=== PATIENT | male | born 1945 | race Caucasian/White ===

== ENCOUNTER 2018-02-27 05:53 | Inpatient (IN) | payer MEDICARE, BC ==
[2018-02-23 11:25] LABS: ADD MAN DIFF? NO
[2018-02-23 11:38] LABS: ADD UMIC YES; UR ASCORBIC ACID NEGATIVE (NEGATIVE); UR BILIRUBIN (Dip) NEGATIVE (NEGATIVE); UR BLOOD (Dip) NEGATIVE (NEGATIVE); UR CLARITY CLEAR (CLEAR); UR COLOR YELLOW (YELLOW); UR GLUCOSE (Dip) NEGATIVE (NEGATIVE); UR KETONES (Dip) NEGATIVE (NEGATIVE); UR LEUKOCYTE ESTERASE (Dip) NEGATIVE Leu/ul (NEGATIVE); UR MUCUS FEW /HPF (NONE SEEN); UR NITRITE (Dip) NEGATIVE (NEGATIVE); UR RBC 0 /HPF (0-5); UR SPECIFIC GRAVITY (Dip) 1.018 (1.003-1.030); UR TOTAL PROTEIN (Dip) 2+ mg/dl (NEGATIVE); UR UROBILINOGEN (Dip) NEGATIVE (NEGATIVE); UR WBC 1 /HPF (0-5)
[2018-02-23 11:39] LABS: WHITE BLOOD COUNT 9.7 10^3/ul (4.8-10.8)
[2018-02-23 11:39] LABS: BASOPHIL # 0.1 10^3/ul (0.0-0.1); BASOPHILS % 1.1 % (0.0-2.0); EOSINOPHILS # 0.3 10^3/ul (0.0-0.5); EOSINOPHILS % 3.2 % (0.0-7.0); HEMATOCRIT 45.3 % (42.0-52.0); HEMOGLOBIN 14.7 g/dl (14.0-18.0); LYMPHOCYTES # 2.1 10^3/ul (0.8-2.9); LYMPHOCYTES % 21.5 % (15.0-51.0); MEAN CORPUSCULAR HEMOGLOBIN 27.1 pg (29.0-33.0); MEAN CORPUSCULAR HGB CONC 32.5 g/dl (32.0-37.0); MEAN CORPUSCULAR VOLUME 83.4 fl (82.0-101.0); MEAN PLATELET VOLUME 9.9 fl (7.4-10.4); MONOCYTES % 10.7 % (0.0-11.0); NEUTROPHIL # 6.1 10^3/ul (1.6-7.5); NEUTROPHILS % 63.2 % (39.0-77.0); PLATELET COUNT 459 10^3/UL (140-415); RED BLOOD COUNT 5.43 10^6/ul (4.70-6.10); RED CELL DISTRIBUTION WIDTH 15.4 % (11.5-14.5)
[2018-02-23 12:00] LABS: INR 0.99; PROTIME 13.2 Sec (11.9-14.9)
[2018-02-23 12:01] LABS: PARTIAL THROMBOPLASTIN TIME 30.9 Sec (23.0-35.0)
[2018-02-23 12:05] LABS: ALANINE AMINOTRANSFERASE 30 IU/L (13-69); ALBUMIN 4.8 g/dl (3.3-4.9); ALBUMIN/GLOBULIN RATIO 1.29; ALKALINE PHOSPHATASE 73 IU/L (42-121); ANION GAP 9 (5-13); ASPARTATE AMINO TRANSFERASE 33 IU/L (15-46); BILIRUBIN,INDIRECT 0.2 mg/dl (0-1.1); BILIRUBIN,TOTAL 0.2 mg/dl (0.2-1.3); BLOOD UREA NITROGEN 13 mg/dl (7-20); CALCIUM 9.9 mg/dl (8.4-10.2); CARBON DIOXIDE 30 mmol/L (21-31); CHLORIDE 102 mmol/L (97-110); CREATININE 0.91 mg/dl (0.61-1.24); GLUCOSE 119 mg/dl (70-220); POTASSIUM 4.2 mmol/L (3.5-5.1); SODIUM 141 mmol/L (135-144); TOTAL PROTEIN 8.5 g/dl (6.1-8.1)
[2018-02-23 12:45] LABS: ERYTHROCYTE SEDIMENTATION RATE 5 mm/Hr (0-20)
[2018-02-27] MEDS: LACTATED RINGER'S 1,000 ML IV* (05:00)
[2018-02-27] MEDS ORDERED: PROPOFOL 20 ML (06:57)
[2018-02-27] MEDS ORDERED: SUCCINYLCHOLINE CHLORIDE 100 MG/5 ML SYG IV ×2 (06:57→07:00)
[2018-02-27] MEDS ORDERED: LIDOCAINE 2% (SDV) 5 ML INJ (06:58)
[2018-02-27] MEDS ORDERED: ROCURONIUM 50 MG INJ ×2 (06:58→07:00)
[2018-02-27] MEDS ORDERED: MIDAZOLAM 1 MG/ML 2 ML INJ (06:58)
[2018-02-27] MEDS ORDERED: GLYCOPYRROLATE 0.4 MG INJ (07:00)
[2018-02-27] MEDS ORDERED: SEVOFLURANE 15 MIN (07:00)
[2018-02-27] MEDS ORDERED: NEOSTIGMINE 3 MG/3 ML SYRINGE (07:00)
[2018-02-27] MEDS: CEFAZOLIN 2 GM/50 ML (PMX) 50 ML IVPB (07:06)
[2018-02-27] MEDS ORDERED: ONDANSETRON 4 MG INJ (07:19)
[2018-02-27] MEDS ORDERED: FAMOTIDINE 20 MG INJ (07:19)
[2018-02-27] MEDS ORDERED: DEXAMETHASONE 4 MG/ML 5 ML INJ (07:19)
[2018-02-27] MEDS ORDERED: THROMBIN 5000 UNIT VIAL (07:31)
[2018-02-27] MEDS ORDERED: GELATIN SIZE 100 SPONGE (07:31)
[2018-02-27] MEDS ORDERED: EPHEDrine SULFATE 50 MG/5 ML SYG (07:44)
[2018-02-27] MEDS: BUPIVACAINE 0.25% (MPF) 30 ML INJ (08:10)
[2018-02-27] MEDS ORDERED: HYDROmorphONE 2 MG/ML SYG (08:42)
[2018-02-27] MEDS: POLYMYXIN/BACITRACIN 1L IRRIG IRR (10:27)
[2018-02-27] MEDS: POLYMYXIN/BACITRACIN 1L IRRIG (10:53)
[2018-02-27] MEDS: DEXTROSE 5%-0.45% NACL 1,000 ML IV ×2 (11:16→20:18)
[2018-02-27] MEDS ORDERED: BETHANECHOL 25 MG TAB PO (11:30)
[2018-02-27] MEDS ORDERED: AL HYDROX/MG HYDROX/SIMETH 30 ML CUP PO (11:30)
[2018-02-27] MEDS ORDERED: DIPHENHYDRAMINE 50 MG CAP PO (11:30)
[2018-02-27] MEDS ORDERED: DIAZEPAM 5 MG TAB PO (11:30)
[2018-02-27] MEDS ORDERED: CEPASTAT LOZENGE MT (11:30)
[2018-02-27] MEDS ORDERED: NALOXONE (0.4 MG/ML) INJ IV (11:30)
[2018-02-27] MEDS ORDERED: TRIMETHOBENZAMIDE 100 MG/ML VIAL IM (11:30)
[2018-02-27] MEDS ORDERED: DIAZEPAM 5 MG/ML SYG IM (11:30)
[2018-02-27] MEDS ORDERED: HYDROCODONE/APAP (5/325) TAB PO ×2 (11:30)
[2018-02-27] MEDS ORDERED: NACL 0.9% 3 ML SYG IV (11:30)
[2018-02-27] MEDS ORDERED: PROCHLORPERAZINE 10 MG TAB PO (11:30)
[2018-02-27] MEDS: CEFAZOLIN 1 GM/50 ML (PMX) 50 ML IVPB ×2 (11:43→17:30)
[2018-02-27] MEDS: HYDROmorphONE 0.2 MG/ML PCA IV (11:48)
[2018-02-27] MEDS: ONDANSETRON 4 MG INJ IV ×2 (11:52→20:19)
[2018-02-27] MEDS ORDERED: NEBIVOLOL 5 MG TAB PO (12:00)
[2018-02-27] MEDS ORDERED: HYDROmorphONE 1 MG/5 ML IV SYRINGE IV (12:00)
[2018-02-27] MEDS ORDERED: FENTAnyl 50 MCG/ML VIAL IV (12:00)
[2018-02-27] MEDS ORDERED: PROCHLORPERAZINE 10 MG INJ IV (12:00)
[2018-02-27] MEDS ORDERED: DIPHENHYDRAMINE 50 MG INJ IV (12:00)
[2018-02-27] MEDS ORDERED: ONDANSETRON 4 MG INJ IV (12:00)
[2018-02-27] MEDS ORDERED: MEPERIDINE 25 MG INJ IV (12:00)
[2018-02-27] MEDS: RANITIDINE 150 MG TAB PO (20:18)
[2018-02-27] MEDS: ZOLPIDEM 5 MG TAB PO (22:28)
[2018-02-28] MEDS: CEFAZOLIN 1 GM/50 ML (PMX) 50 ML IVPB ×2 (00:37→06:47)
[2018-02-28 05:16] LABS: HEMATOCRIT 37.1 % (42.0-52.0)
[2018-02-28 05:43] LABS: ANION GAP 10 (5-13); BLOOD UREA NITROGEN 14 mg/dl (7-20); CALCIUM 8.5 mg/dl (8.4-10.2); CARBON DIOXIDE 28 mmol/L (21-31); CHLORIDE 104 mmol/L (97-110); CREATININE 0.89 mg/dl (0.61-1.24); GLUCOSE 128 mg/dl (70-220); POTASSIUM 3.9 mmol/L (3.5-5.1); SODIUM 142 mmol/L (135-144)
[2018-02-28] MEDS: ONDANSETRON 4 MG INJ IV (06:48)
[2018-02-28] MEDS ORDERED: BETHANECHOL 25 MG TAB PO (08:00)
[2018-02-28] MEDS: RANITIDINE 150 MG TAB PO (08:31)
[2018-02-28] MEDS: ASCORBIC ACID 500 MG TAB PO (08:31)
[2018-02-28] MEDS: DOCUSATE SODIUM 100 MG CAP PO ×2 (08:32→13:12)
[2018-02-28] MEDS: AMLODIPINE 10 MG TAB PO (08:32)
[2018-02-28] MEDS: LOSARTAN 50 MG TAB PO (08:33)
[2018-02-28] MEDS: FERROUS SULFATE (EC) 325 MG TAB PO ×2 (08:44→13:00)
[2018-02-28] MEDS ORDERED: NON-FORMULARY/PATIENT OWN MED (Olmesartan Medoxomil (Benicar) 20 MG) PO (09:00)
[2018-02-28] MEDS ORDERED: AMLODIPINE 10 MG TAB PO (09:00)
[2018-02-28 09:50] LABS: ADD UMIC YES; UR ASCORBIC ACID NEGATIVE (NEGATIVE); UR BILIRUBIN (Dip) NEGATIVE (NEGATIVE); UR BLOOD (Dip) 1+ mg/dL (NEGATIVE); UR CLARITY CLEAR (CLEAR); UR COLOR STRAW (YELLOW); UR GLUCOSE (Dip) NEGATIVE (NEGATIVE); UR KETONES (Dip) NEGATIVE (NEGATIVE); UR LEUKOCYTE ESTERASE (Dip) NEGATIVE Leu/ul (NEGATIVE); UR MUCUS FEW /HPF (NONE SEEN); UR NITRITE (Dip) NEGATIVE (NEGATIVE); UR RBC 21 /HPF (0-5); UR SPECIFIC GRAVITY (Dip) 1.009 (1.003-1.030); UR TOTAL PROTEIN (Dip) NEGATIVE (NEGATIVE); UR UROBILINOGEN (Dip) NEGATIVE (NEGATIVE); UR WBC 2 /HPF (0-5)
[2018-02-28] MEDS: ACETAMINOPHEN 325 MG TAB PO (10:07)
== END 2018-02-28 16:15 | disposition home or self-care (01) | DRG 520 ==
LOC: REC 05:53 → MS1 12:15
PROC: 0SB20ZZ Excision of Lumbar Vertebral Disc, Open Approach (ICD-10-PCS; principal; 2018-02-27 07:00)
PROC: 01NB0ZZ Release Lumbar Nerve, Open Approach (ICD-10-PCS; 2018-02-27 07:00)
PROC: 4A11X4G Monitoring of Peripheral Nervous Electrical Activity, Intraoperative, External Approach (ICD-10-PCS; 2018-02-27 07:00)
DX: M51.26 Other intervertebral disc displacement, lumbar region (principal); M48.061 Spinal stenosis, lumbar region without neurogenic claudication; I10 Essential (primary) hypertension
CPT/HCPCS: 72020; 80048; 80053; 81001; 85014; 85018; 85025; 85610; 85651; 85730; 86850; 86900; 86901; 86920; 87086; 88304; 97116; 97161; 97530